=== PATIENT | female | born 1935 | race Caucasian/White ===

== ENCOUNTER 2019-12-17 17:39 | Inpatient (IN) | payer OTHER ==
[~2019-12-17] VITALS: Ht 154.9 cm; Wt 66.3 kg
--- NOTE | ~2019-12-17 | D ---
[facility] [place] [address] DISCHARGE SUMMARY Name: LUANN RAMOS Room #: 522B-B [facility] IN M.R.#: [id number] Admission: 12/17/19 Attend Phys: Zev Amin DO Discharge: 12/24/19 Date of : 39 Report #: [id number] THIS REPORT FOR: //name// CC: Zev Amin FAM physician/PCP DATE OF SERVICE: 12/24/2019 INPATIENT PSYCHIATRIC DISCHARGE SUMMARY ATTENDING PHYSICIAN: Zev Amin DO. ESTIMATOR LUMBER: ____. DISCHARGE DIAGNOSES: Major depressive disorder, single episode, severe degree, improved. ADDITIONAL DIAGNOSES: 1. 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 2. Hypertension, stable. 3. Renal failure, improved. 4. Hyperlipidemia. 5. History of sick sinus syndrome. 6. Permanent pacemaker, stable. 7. History of colon cancer. DISCHARGE PLAN: The patient was discharged to [facility] in [place], [place]. The patient's psychiatric care will be referral from the [facility] where she has an appointment shortly. The patient was given medical ____ prevention of suicide ____. The patient was educated on routine ____ suicide prevention hotline. The patient will be on a low-fat, low-cholesterol diet. Her appointment with ____ was 12/26/2019 at 11:00 a.m. DISCHARGE MEDICATIONS: Metoprolol 75 mg p.o. b.i.d., Lexapro 10 mg p.o. daily, miconazole nitrate 2 ____ topical b.i.d., trazodone 50 mg p.o. at bedtime p.r.n. sleep, aspirin 81 mg p.o. daily for cardioprotection. Metoprolol for hypertension and [place] prevention; Lexapro, depression; miconazole, rash on her bottom; atorvastatin for hyperlipidemia 40 mg p.o. daily; brimonidine tartrate 2.5 mL drops each eye 3 times a day for ____ 10 mL drops 3 times a day. REASON FOR ADMISSION: The patient had an intentional suicide attempt and was hospitalized at [place], [place]. This was on Ambien. This was her first ever suicide attempt and her son lives in the [place] area in [place], [place], so they elected to seek a psychiatric hospitalization in this area as her planning on her moving up here [address] [address] DISCHARGE SUMMARY Name: LUANN RAMOS Room #: 522B-B [facility] IN [facility].#: [id number] Admission: 12/17/19 Attend Phys: Zev Amin DO Discharge: 12/24/19 Date of : 39 Report #: [id number] prior to suicide attempt. HOSPITAL COURSE: The patient was admitted to Geriatric Psychiatry Unit. She was remorseful for her attempt. Her grandchildren are a protective factor. She was started on Lexapro 5 mg and increased to 10 mg daily at discharge. The patient was given hydroxyzine. She disputed that she was sleeping as long as staff recorded ____ normal sleep hours were reported. I elected to change her to trazodone 50 mg at discharge. If this does not work out, she will be in touch with me by phone, so sleep maintenance is certainly important. She was eating and drinking well, not suicidal or homicidal on day of discharge. MENTAL STATUS EXAMINATION: On day of discharge: VITAL SIGNS: Temperature 36.7, pulse 93, respirations 18, BP 134/89. MUSCULOSKELETAL: Normal gait and station. MENTAL STATUS EXAMINATION: This is a well-developed, fairly nourished female appearing stated age. Attention fair. Concentration fair. Speech is normal, rate, rhythm, and tone. Thought process limited. Thought content focused on discharge, future oriented. Denied SI or HI. Denied hopelessness, helplessness. Denied auditory, visual, or tactile hallucinations. Memory not formally tested. Insight fair. Judgment fair. Fund of knowledge above average. Prognosis for this patient is fair to guarded depending on her social support system, engagement in psychotherapy and psychiatric treatment. By: [id number] Zev Amin, DO /nt
[2019-12-17] MEDS ORDERED: ASA81BEC PO (19:42)
[2019-12-17] MEDS ORDERED: LIPITOR40 MG PO (19:42)
[2019-12-17] MEDS ORDERED: PROLIA60 MG/1 ML SUBQ (19:44)
[2019-12-17] MEDS ORDERED: PRINIVIL5 MG PO (19:44)
[2019-12-17] MEDS ORDERED: LOPERAMIDE2 MG PO (19:45)
[2019-12-17] MEDS ORDERED: LOPRESSOR50 MG PO (19:46)
[2019-12-17] MEDS ORDERED: [UNRECOGNIZED DRUG - OTHER] PO (19:49)
[2019-12-17 20:15] VITALS: BP 140/65
[2019-12-17 20:19] VITALS: BP 140/65
[2019-12-17] MEDS ORDERED: LUMIFY2.5 ML EA. EYE (21:17)
[2019-12-17] MEDS ORDERED: SYSTANE COMPLET10 ML EA. EYE (21:19)
--- NOTE | 2019-12-17 21:39 | NUR ---
Patient admitted from [facility] located in [place]. Patient arrived via private vehicle with 2 sons and daughter in law. Patient has been hospitalized the last couple days due to intentional overdose on at least 60 tabs of Ambien. Patient reports that she has been depressed since before 2018. Reports that she is a "very private person" and nobody around her knew that she was feeling depressed. Patient was found by a lens blocker in her private home after consuming large amount of Ambien. Patient presents with flat affect, tearful. Alert and oriented x4. Contracted for safety. Reports that she will not attempt suicide "ever again" and it was a "bad mistake". Patient up ad franco, continent of bladder. Patient reporting diarrhea and requesting Immodium soon after arrival. When asked when last episode of diarrhea was, patient stated several hours ago. Education provided on medication use and to notify staff if and when she has a loose BM. Patient then stated it was "soft not watery". This nurse spoke with sons privately. Sons report that they feel patient is a "pill addict" and loves to go to the doctor. State that it does not have to be any controlled substances, it can be any type of OTC medication. Patient enjoys taking any type of medicine, several times a day, whether it is needed or not. Sons did report that patient was prescribed Lortab approximately 4 years ago and felt she was misusing them due to her being slurred and "not making sense". They removed the Lortab from the home and she returned to normal. Sons report that patient has manipulative and reasoning tendencies. She is contributing her suicide attempt due to a multitude of reasons, depending on who is visiting her. Patient's did pass away 5 years ago but she has had a recent "boyfriend" named Kingsley. 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 Kingsley had become recently ill and moved to [place] to be near his family which is believed to be a trigger. Patient currently rates depression as a 3/10 due to having to leave friends at home in [place]. Family has discharge plan of patient moving into [facility] in [place], [place]. Patient is aware of d/c plan. Patient denies SI/HI/AH/VH at this time. Patient tearful but cooperative. Patient shown unit and provided belongings for stay. Patient has been fixated on needing her face wash, moisturizer, curling iron, etc. Patient educated that those belongings are not allowed on the unit and her primary focus needs to be on her mental health and not materialistic things. Patient states that she understands and wants to "just be happy again". Patient did contract for safety. Will monitor throughout the night.
--- NOTE | 2019-12-18 07:30 | NUR ---
Assumed care of patient this am. Patient in bedroom. Patient in good spirits, calm, content, and compliant with care. Patient denies pain. Patient denies si/hi. Patient takes medications whole with thin fluids. Patients assessment shows clear breath sounds, active bowel sounds, and s1 s2 heard with auscultation. Patients affect flat.
[2019-12-18 07:41] VITALS: BP 158/62
[2019-12-18 08:00] VITALS: BP 158/62
--- NOTE | 2019-12-18 10:41 | NUR ---
Spiritual Consult was entered on the wrong patient. An order from Dr. Amin was received read back and verified to d/c spiritual consult.
--- NOTE | 2019-12-18 11:40 | NUR ---
Nadine completed chart review and discussed this pt in treatment team. Pt is a high risk for suicide and is recently relocated to [facility] and has placement at [place]. Pt may need a highter level of care due to the severity of her suicidal thoughts, plans and actions. SW student completed the intake assessement and [facility]. She scored 23/30. TP was completed , signed and placed in chart.
--- NOTE | 2019-12-18 12:56 | NUR ---
KRISTA spoke with pt's son and he provided more insight, and has a plan for pt to live in [facility]. Pt's son will furnish and visit daily. He reports that he will complete the meds management. There is AL available if needed. Pt's son will consider this if needed. Pt will need outpt therapy and psychiactric care for d/c in the [facility] area- for transportation ease. Including PCP needed.
[2019-12-18 14:55] LABS: HEMATOCRIT 39.9 % (37.0-47.0); HEMOGLOBIN 13.2 gm/dL (12.0-15.0); MCH 29.4 pg (26.0-34.0); MCHC 33.1 g/dL (28.0-37.0); MCV 88.9 fL (80.0-100.0); RBC 4.49 mil/uL (4.20-5.00); RDW 14.9 % (10.5-14.5); WBC 8.6 thou/uL (4.0-11.0)
[2019-12-18 15:05] LABS: CALCIUM 9.2 mg/dL (8.5-10.1); CREATININE 1.3 mg/dL (0.6-1.0); POTASSIUM 3.9 mmol/L (3.5-5.1)
[2019-12-18 19:41] VITALS: BP 111/51
--- NOTE | 2019-12-19 04:23 | NUR ---
Assumed care of pt @ 1900. Pt pleasant et cooperative this shift. Pt awakened in early am requesting medication to "relax me". Physician called et obtained order for Hydroxyzine 50mg PO PRN for sleep et Hydroxyzine 25mg PO PRN for anxiety. Pt was given 50mg et is now resting in bed with eyes closed. Ambulates halls ad franco with steady gait. VSWNL. Took medications whole without difficulty. Pt requesting to meet with physician one-on-one today for assessment of how she is doing as she feels that she is not "doing well" @ present time. Nursing assessment done with no physical abnormalities noted at present time. Will continue to monitor per protocol.
[2019-12-19 07:48] VITALS: BP 143/68
[2019-12-19 11:00] VITALS: BP 143/68
--- NOTE | 2019-12-19 12:59 | NUR ---
ASSUMED CARE AT 0700 THIS MORNING. PT. UP, DRESSED AND IN THE DINING ROOM FOR MEALS. TOOK HER MEDICATIONS WITHOUT PROBLEMS. WAS PLEASANT AND COOPERATIVE WITH STAFF. HAS BEEN ON THE UNIT FOR GROUPS, MEDS AND MEALS. NO PROBLEMS NOTED. IS DENING SI/HI TODAY. DENIES AVH ALSO.
[2019-12-19 19:28] VITALS: BP 138/58
--- NOTE | 2019-12-19 20:23 | H ---
[facility] [place] [address] HISTORY AND PHYSICAL Name: LUANN RAMOS Room #: 522B-B ADM IN M.R.#: [id number] Admission: 12/17/19 Attend Phys: Zev Amin DO Discharge: Date of : 39 Report #: [id number] THIS REPORT FOR: //name// CC: Zev Amin FAM physician/PCP DATE OF SERVICE: 12/17/2019 INPATIENT PSYCHIATRIC EVALUATION PRIMARY TEAM ATTENDING PHYSICIAN: Zev Amin DO COMMUNICATIONS SYSTEMS ENGINEER: Dr. Vaughan. SOURCES OF INFORMATION: Records from [facility] in [place], [place] as well as my own evaluation here at [facility]. CHIEF COMPLAINT: An intentional suicide attempt in [place], [place] and accompanying delirium. The patient was transferred by private vehicle for Geriatric Psychiatry Hospitalization. HISTORY OF PRESENT ILLNESS: An 84-year-old , living alone female with sons living out of state in [place] and in [place], is admitted voluntarily to [facility]. The patient was admitted to [facility] in [place], [place] on 12/13/2019. Reportedly, the patient was found by negotiator sales leaning to the side in her chair. The patient had makeup on, stated that she was going to ____ follow commands. Apparently, she last spoke with friends, family the night before around 7:00 p.m., all of whom stated she was her usual self. The patient is still driving, very oriented at baseline. When the furniture technician found her in a recliner chair, she had a blank stare, was not verbally responsive, but was awake. There was concern she had a left-sided facial droop. Facial droop was present in the Emergency Room in [place], but exam was nonfocal, did not know the family members were, still very somnolent, but can wake up and tells everyone is in the room. The patient states she takes "a lot of medications," but no new prescriptions on [facility] that is evidently the medical record database in [place]. The patient states she has quite a bit of [id number] medications she has taken, has had a cough for weeks. PAST MEDICAL HISTORY: The patient's medical history from the hospital in [place] were arrhythmia, chronotropic incompetence, hyperlipidemia, hypertension, insomnia, seasonal allergies, sick sinus syndrome, sinoatrial node dysfunction. Historically, she has had benign bladder tumor, bilateral cataracts, basal skin cell cancer, colon cancer, history of kidney stones. [facility] [address] [place] [address] HISTORY AND PHYSICAL Name: LUANN RAMOS Room #: 522B-B ADM IN M.R.#: [id number] Admission: 12/17/19 Attend Phys: Zev Amin DO Discharge: Date of : 39 Report #: [id number] PAST SURGICAL HISTORY: 1. Esophagogastroduodenoscopy in 2017. 2. Artificial pacemaker 06/06/2016. 3. Colonoscopy, 07/2014. 4. Tibialis tendinitis 04/2014. 5. Tear duct 08/28/2012. 6. History of bilateral cataract extraction, 2011. 7. Operative procedure on foot 08/11/2011. 8. Colonoscopy 07/21/2011. 9. History of repair of rotator cuff 10/19/2010. 10. History of hemicolectomy 07/27/2010. 11. Operative procedure on ankle 12/28/2009. 12. Kidney stone surgery, 08/2006. 13. Benign bladder tumor 03/2006. 14. Bilateral breast reduction in 1987. HOME MEDICATIONS: Noted to be ____ aspirin, atorvastatin, ____ oral tablet, lisinopril, metoprolol tartrate, Prolia. ALLERGIES: NIACIN CAUSES RASH; ERYTHROMYCIN, RASH; MORPHINE, VOMITING; HYZAAR, RASH; NORVASC, SYNCOPE; TRAZODONE, UNSURE OF REACTION. SOCIAL HISTORY: Smoking status: Never tobacco smoker. Alcohol: Denies. She is retired. She walks frequently. CT of the brain was done in [place], it showed no acute intracranial abnormalities seen. Mild chronic nonspecific supratentorial white matter disease, most commonly reflect small vessel disease such as arteriosclerosis. Chest x-ray showed low lung volumes with elevated right hemidiaphragm and bibasilar atelectasis. CT angio was done that showed no perfusion abnormalities or localized area of acute infarct or ischemic, penumbra of moderate atherosclerosis without high-grade arterial stenosis in the head or neck. There is long segment [id number]-[id number] stenosis in the bilateral cavernous and supraclinoid internal carotid artery segments. The patient was admitted with acute metabolic encephalopathy, UTI, hyperglycemia, leukocytosis, unlikelihood of stroke. Her son told me that after her family came into the hospital, they found a suicide note at her home. There is a consultation from psychiatrist, Pablo Celestin. His diagnosis of the patient is no specific diagnosis. 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 Her amish choir has her community with organizations including the family, practice physician ____ there in [place]. She has a son living in [place]; in [place], [place] and plans to live in assisted living there. Additional information from the psychiatric consultation in [place] is [facility] [address] [place] [address] HISTORY AND PHYSICAL Name: LUANN RAMOS Room #: 522B-B ADM IN Leonid.Anyi.#: [id number] Admission: 12/17/19 Attend Phys: Zev Amin DO Discharge: Date of : 37 Report #: [id number] expanded that the patient reports that she has been depressed since before , reporting that she has been having thoughts of ending her life and that her family would be better off without her during that time. She reports that this has improved over with his son and his family from [place], [place] came to visit. After they left things went downhill again. She has been contemplating ending her life. She reports on night prior to admission in [place], she feels like she has gotten her ducks in a row, was able to go ahead and take the overdose. This was at the magnitude of 60 Ambien tablets. She reports that she felt a peace with this and that this was something that she felt she was doing the right thing, although she reported remorse in [place] the way this hurt her family, etc. She reports her granddaughter is a scrap carrier, let her know known certain terms that she was not thinking clearly and that this was a bad choice. She reports she has not shared this with any friends or family members. No one really knew that she was depressed. Her son was also in the room and reports that he was not aware of the thing that she was going through this. The family had been talking about moving her into assisted living near [place], [place]. The patient reports that she had been over the past 5 years. She is depressed somewhat after her . She does have a boyfriend male regulatory technician, but he was moved to an assisted living in [place] recently. She reports only taking Wellbutrin, but for a couple of weeks. No other antidepressant since her . Currently in the hospital in [place], she has told other staff that she has been considering this overdose for several years. She reports to me today that she had some past suicidal thoughts. There were never any plans. She also presented to staff that her overdose attempt may be in part due to not wanting to relocate from her home in [place] where she has been very active. LABORATORY DATA: Laboratories from the hospital in [place] white count 8.8 on the 18th, H and H 14.1 and 41.1, platelet count 212. Sodium on the 19th 143, potassium 3.5, chloride 108, bicarbonate 23, anion gap 12, BUN 9, creatinine 0.7, GFR 81, glucose level 110, calcium 9.1. Lactic acid 0.9. There was a high of 3.5 on admission. Urinalysis showed 2+ leukocyte esterase, 1+ mucus and occasional epithelial cells. C. diff was negative. Something is unusual, it says urine culture, fecal culture positive, I am not sure what it was positive for, but the patient was clearly not septic. DISCHARGE MEDICATIONS: From Hospital in [place], aspirin 81 mg p.o. daily, atorvastatin 40 mg p.o. daily, lisinopril 5 mg p.o. daily, metoprolol 50 mg p.o. b.i.d., acetaminophen 650 p.o. q.4 hours p.r.n., Zofran p.r.n., IV Lovenox 40 mg daily for thromboembolism prophylaxis, famotidine 20 mg p.o. daily, Restoril 7.5 mg p.o. at bedtime, Phenergan, Imodium. On interview today, her son, Gerardo was present for most of it. He describes his mother as very much an entitled at times making comments, it can be hurtful [facility] [address] [place] [address] HISTORY AND PHYSICAL Name: LUANN RAMOS José Luis Room #: 522B-B [facility] IN [facility].#: [id number] Admission: 12/17/19 Attend Phys: Zev Amin, Discharge: Date of : 39 Report #: [id number] though he certainly describes he loves with his mother. On interview with me, the patient states she denies to me the things reported during her hospitalization in [place]. She denies suicidal ideation. She does not dispute make any attempt, but largely reports to be of amnestic from the things found such as the suicide note. PHYSICAL EXAMINATION: VITAL SIGNS: Today, temperature 36.3, pulse 83, respirations 15, BP 158/60, O2 sat 95%. MUSCULOSKELETAL: Normal gait and station. EYES: The patient is wearing glasses. MENTAL STATUS EXAMINATION: This is a well-developed, fairly nourished female appearing at least stated age. Attention limited. Concentration limited. Speech is normal rate. Thought process is linear and goal directed. Thought content focused on ameliorating her situation. Denied SI or HI. Denied hopelessness, helplessness. Denied auditory, visual, or tactile hallucinations. Memory is not formally tested, but will be during his stay with the [facility]. Insight impaired. Judgment limited. Fund of knowledge, no greater than average. FORMULATION: An 84-year-old female admitted for further stabilization following an intentional suicide attempt in [facility] [address]. DIAGNOSES: At this time, major depressive disorder, single episode, severe degree, possible parent-child relational disorder. PLAN: Evaluate, stabilize, obtain collateral. Currently, she is on metoprolol 50 mg p.o. t.i.d. in the hospital, lisinopril 5 mg p.o. daily, brimonidine tartrate 0.2% 2 drops 4 times a day in each eye, atorvastatin 40 mg p.o. daily, aspirin 81 mg p.o. daily. The rest are pretty much PRNs. Regarding the patient's medication, I think it is reasonable to start her on an SSRI as that given her age and behavior, this should be protective. The first suicide attempt also does not convey a lot of protective nature. So, the patient will need to be treated with medication and psychotherapy going forward. Also, we will evaluate her cognition and see if she will likely do well in an independent living or require assisted living. Time spent on interview, review of records, coordination of care of this patient is well over 60 minutes. STRENGTHS: She is insured. She has supportive family. She has new place to live. WEAKNESSES: Seriousness of suicide attempt, poor insight. [address] [address] HISTORY AND PHYSICAL Name: RACHELLUANN José Luis Room #: 522B-B ADM IN ..#: [id number] Admission: 12/17/19 Attend Phys: Zev Amin, Discharge: Date of : 39 Report #: [id number] REVIEW OF SYSTEMS: Today only brief 10-point done by the hospitalist, denied general physical complaints. <ELECTRONICALLY SIGNED> By: Zev Amin DO 12/19/193 [id number] Zev Amin DO /nt
--- NOTE | 2019-12-19 23:55 | NUR ---
Care assumed of patient at 1915: Patient seated in dayroom at start of shift. Interacting well with staff and other peers. Alert and oriented x4. Calm, pleasant and cooperative. Denies pain or discomfort. Denies SI/HI/AH/VH. No s/s of delusional or paranoia behaviors. Reports feeling "some" depression due to changes taking place in her moving. Reports that she is going to miss her friends back at home. Did report that her suicide attempt was due to feeling a burden on her children. Ate 100% HS snack. Took HS medication whole without difficulty. Was provided PRN Hydroxyzine per her request to help her sleep. Patient reported to the nurses station around 2300 stating that she was not able to sleep. COLETTE Chakraborty, notified by phone. Order obtained for Seroquel 25mg 1x dose due to insomnia. Medication provided. Patient smiling appropriately, calm affect and speech observed.
--- NOTE | 2019-12-20 08:44 | NUR ---
NADINE set up an appt per family request with Dr Nate Sen at [facility] in [place] [phone]. 12/26 at 11 am. Nadine then followed up and left a VM asking for a psych appt. BJ.
[2019-12-20 09:02] VITALS: BP 122/50
[2019-12-20 10:53] VITALS: BP 122/50
--- NOTE | 2019-12-20 10:57 | NUR ---
NADINE received a report from [facility] that Dr Marsh will have to start the referral for psych. Nadine reported this this to son Gerardo. NADINE will fax the d/c orders, summary and updates to [facility] [phone] when pt's discharges. NADINE discussed with gerardo on 12-18-19 the protective factors that are in place for this pt when she returns to her new home at [facility]. She will be having daily visits from her family who live 3.5 miles away. Pt enjoys activities and is already planning to join these in [place]. Gerardo will be monitoring her medications and there will be less than 30 days prescriptions written at D/C. This pt will have a Dr burnette and transportation will be provided by [facility]. Pt has denied any SI since admission to this development writer.
--- NOTE | 2019-12-20 11:15 | NUR ---
ASSUMED CARE AT 0700 THIS MORNING. PT. UP, DRESSED AND ON THE UNIT. PT. ATE BREAKFAST, TOOK MEDS WITHOUT PROBLEMS, AND ATTENDED MORNING MEETING. AFTER THE MEETING SHE TOOK A SHOWER AND COMPLETED ADLS. SHE HAS BEEN INTERACTING WITH A FEW SELECT PEERS.
[2019-12-20 19:20] VITALS: BP 136/73
--- NOTE | 2019-12-20 23:02 | NUR ---
Care assumed of patient at 1915: Patient seated in dayroom at start of shift. Patient interactive with staff, compliant with nursing assessment. Patient seated with other peers but doesn't appear to be communicating with any others. Patient calm, pleasant and cooperative. Alert and oriented x4. Patient denies SI/HI/AH/VH. No delusional or paranoia behaviors observed. Reports feeling "some" depression. Denies anxiety. Patient states that her granddaughter visited today which was hard on her. She states that the look on her granddaughters face when discussing her OD was very hard on her. Discussed protective factors and coping skills with patient. Patient states that she will never forget the look on her granddaughters face and the tears they were crying. If she starts to have suicidal thoughts again, she will remember their faces. Patient also discussed that she needs to be more open about her feelings rather than just "pushing them down" and hiding them. Reports that she needs to stop feeling like a burden to others and discuss how she feels with others. Patient took HS medication without difficulty and has been resting quietly since going to bed.
[2019-12-21 08:00] VITALS: BP 137/45
--- NOTE | 2019-12-21 08:00 | NUR ---
PT UP THIS AM OUT IN DINNING ROOM FOR BREAKFAST. PT CHEERFUL THIS AM AND STATED SHE GOT GOOD SLEEP THIS AM. PT STATED SHE JUST WANTS TO GET BETTER FOR HER GOAL.
[2019-12-21 08:39] VITALS: BP 137/45
--- NOTE | 2019-12-21 11:54 | NUR ---
KRISTA reported the Dr torrest updates and d/c pending 12/24 10:30 am Monday. And he provided me an update that he feels his mom is acclimating to the change and was glad that she was particpating in groups and expects she will continue this mood and behavior.
--- NOTE | 2019-12-21 13:39 | NUR ---
SW met with pt today and she reported that she has no signs or symtpoms of SI. Pt is looking forward to d/c on monday and inquired about a seeing a mental health therapist too. KRISTA created a list of Medicare approved clinical therapists and this will be added as a handout to her d/c plan/packet.
--- NOTE | 2019-12-21 20:46 | NUR ---
Care assumed of patient at 1915: Patient seated in dayroom at start of shift. Patient smiling, calm, pleasant and cooperative. Interacting well with staff and peers. Alert and oriented x4. Denies SI/HI/AH/VH. No delusional or paranoia behaviors observed. Participated in small group with other peers this evening with nurse. Discussed coping mechanisms about the group. Reports that she is not feeling depressed. 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 Discussed potential crafts she could make when feeling down/depressed/anxious. Patient reports this would be a good coping mechanism for herself. Patient helful and respectful to others. Nurse feels that patient was more open about her feelings and emotions this evening. Patient ate 100% HS snack. Took HS medication whole without difficulty. Denies pain or discomfort. Patient completing HS cares independently at this time.
[2019-12-22 08:20] VITALS: BP 132/69
[2019-12-22 09:15] VITALS: BP 132/69
--- NOTE | 2019-12-22 09:15 | NUR ---
PT UP AD SOLO. PT DENIES PAIN. PT STATED BM TODAY. PT GOAL IS TO SLEEP TONIGHT. 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
[2019-12-22 19:09] VITALS: BP 127/64
[2019-12-22 22:18] VITALS: BP 127/64
--- NOTE | 2019-12-23 02:37 | NUR ---
Assumed care of patient at 1915. Pt. has no complaints and is calm and cooperative. Pt. has previously complained of not sleeping well so hydroxazine dose was increased and patient took whole and without difficulty. NO signs or symptoms of distress noted.
--- NOTE | 2019-12-23 05:20 | NUR ---
0515 Pt. slept well through shift. Did not awaken.
[2019-12-23 07:33] VITALS: BP 141/64
--- NOTE | 2019-12-23 12:03 | NUR ---
0800 Lying supine in bed without s/o distress. Alert and orientated X4. When asked about SI, she states that she would never think of harming herself again and is very sorry especially when she saw her grandaughters. States "it was a moment of insanity. That's what it was, a moment of insanity." Denies pain, HI. Calm and cooperative. Breath sounds clear t/o, bilaterally equal. Reg HR auscultated. Color pink with brisk capillary refill and palpable peripheral pulses. Voiding independently. Active bowel sounds over soft, rounded abdomen. Buttocks slightly reddened, ointment applied. 1200 Sitting in dining room eating lunch. No s/o distress. Participating in groups this AM.
[2019-12-23 20:08] VITALS: BP 142/59
--- NOTE | 2019-12-24 04:23 | NUR ---
ASSUMED CARE ON 12/23/19 @ 19:15, IN DAYROOM SITTIN ON COUCH WATCHING TV. COOPERATED WITH ASSESSMENT, PLEASANT AFFECT NOTED, A&OX3-4. DENIED SI, HI, A/V HALLUCINATIONS. DENIES ANXIETY, REPORTED DEPRESSION IS MUCH BETTER. REPORTS BEING PLEASED AT HOPE OF GOING HOME ON 12/24. HRRR, S1S2 AUSCULTATED, LUNGS CTA AND EVEN. ABD N X 4 Q. REPORTS SOFT FORMED BM X 2 TODAY. AWAKE @ 02:30, REQUESTING TYLENOL FOR GENERAL PAIN OF 4/10. ASLEEP UPON FOLLOW UP ASSESSMENT. BED IN LOW POSITION, WILL CONTINUE TO MONITOR Q 12 MINUTES FOR PATIENT SAFETY.
--- NOTE | 2019-12-24 06:30 | NUR ---
SLEPT 7.8 HOURS
[2019-12-24 09:06] VITALS: BP 134/89
[2019-12-24 09:29] VITALS: BP 134/89
--- NOTE | 2019-12-24 09:37 | NUR ---
ASSUMED CARE AT 0700 THIS MORNING. PT. DRESSED NEATLY, AND ON THE UNIT FOR BREAKFAST. PT. SMILING AND STATING SHE IS GOING HOME TODAY. SHE STATES SHE KNOWS TO ASK FOR HELP WHEN SHE IS FEELING DEPRESSED AND OR SUICIDAL. SHE STATES SHE WILL NOT COMMIT SUICIDE AGAIN BECAUSE SHE KNOWS IT WILL HURT HER FAMILY SO MUCH.
--- NOTE | 2019-12-24 09:37 | NUR ---
Nadine spoke with son this AM and confirmed d/c plans and he reported that the Dr office had called and confirmed her appt. NADINE will fax d/c summary and orders with labs to Dr Marsh office [facility] [phone]) [phone]
[2019-12-24] MEDS ORDERED: LOPRESSOR50 PO (09:38)
[2019-12-24] MEDS ORDERED: LEXAPRO 10 MG T10 M1 PO (09:39)
[2019-12-24 09:40] VITALS: BP 134/89
[2019-12-24] MEDS ORDERED: MICONAZOLE NITR45 G3 TOP (09:41)
[2019-12-24] MEDS ORDERED: TRAZODONE HCL50 MG PO (09:42)
== END 2019-12-24 10:55 | disposition home or self-care (01) | DRG 885 ==
LOC: SBH
PROVIDERS: Hospitalist; ADMIT Psychiatry & Neurology Psychiatry
DX: F32.2 Major depressive disorder, single episode, severe without psychotic features (principal); N17.9 Acute kidney failure, unspecified; C18.9 Malignant neoplasm of colon, unspecified; R19.7 Diarrhea, unspecified; Z62.820 Parent-biological child conflict; I10 Essential (primary) hypertension; E78.5 Hyperlipidemia, unspecified; I49.5 Sick sinus syndrome; Z63.79 Other stressful life events affecting family and household; Z95.0 Presence of cardiac pacemaker; Z98.42 Cataract extraction status, left eye; Z98.41 Cataract extraction status, right eye; Z90.49 Acquired absence of other specified parts of digestive tract; Z88.5 Allergy status to narcotic agent; Z88.8 Allergy status to other drugs, medicaments and biological substances; Z84.89 Family history of other specified conditions; Z79.899 Other long term (current) drug therapy; Z91.5 Personal history of self-harm
CPT/HCPCS: 10880